=== PATIENT | female | born 1990 | race Caucasian/White ===

== ENCOUNTER 2019-01-16 04:16 | Emergency (ER) | payer OTHER ==
[~2019-01-16] VITALS: Ht 170.2 cm; Wt 127.1 kg
[~2019-01-16 04:16] MED LIST: ALPR0.25 PO; IBUP-1542 PO
[2019-01-16 04:23] VITALS: Ht 170.2 cm; Wt 127.1 kg
[2019-01-16] MEDS ORDERED: KETOROLAC 30 MG INJ IM STA (04:46)
[2019-01-16] MEDS ORDERED: LIDOCAINE/MYLANTA 40 ML BTL PO ONE (05:00)
[2019-01-16] MEDS ORDERED: ONDANSETRON (ODT) 4 MG TAB ODT STA (05:09)
[2019-01-16] MEDS ORDERED: ACET-141 PO (05:56)
[2019-01-16] MEDS ORDERED: UDMYL PO (05:56)
[2019-01-16] MEDS ORDERED: ONDA4TAB14 PO (05:56)
--- NOTE | 2019-01-16 05:58 | ERD ---
ER Documentation Chief Complaint Chief Complaint epigastric pain/vomiting since 2199 ROS All systems reviewed and are negative except as per history of present illness. Medications Home Meds Active Scripts Ondansetron (Ondansetron Odt) 4 Mg Tab.rapdis, 4 MG PO Q6H PRN for NAUSEA AND/OR VOMITING, #15 TAB Prov:BRENNAN RODRIGUEZ DO 01/16/19 Acetaminophen* (Acetaminophen*) 500 MG Extra Strength Tablet, 500 MG PO Q4H PRN for PAIN AND OR ELEVATED TEMP, #30 TAB Prov:BRENNAN RODRIGUEZ DO 01/16/19 Magaldrate/Simethicone* (Mag-Al Plus Suspension*) 30 Ml Oral.susp, 30 ML PO Q6H PRN for GASTROINTESTINAL UPSET for 7 Days, #1 BOTTLE Prov:BRENNAN RODRIGUEZ DO 01/16/19 Ibuprofen* (Ibuprofen*) 600 Mg Tablet, 600 MG PO Q6H PRN for PAIN AND OR ELEVATED TEMP, #30 TAB Prov:SHEBA SARAVIA NP 12/10/15 Alprazolam* (Xanax*) 0.25 Mg Tablet, 0.25 MG PO Q8H PRN for ANXIETY, #10 TAB Prov:SHEBA SARAVIA [employer] 12/10/15 Reported Medications [none] Unknown Strength No Conflict Check 12/10/15 Allergies Allergies: Coded Allergies: No Known Allergy (Unverified , 12/10/15) PMhx/Soc Medical and Surgical Hx: pt denies Medical Hx, pt denies Surgical Hx History of Surgery: No Anesthesia Reaction: No Hx Neurological Disorder: No Hx Respiratory Disorders: No Hx Cardiac Disorders: No Hx Psychiatric Problems: No Hx Miscellaneous Medical Probl: No Hx Alcohol Use: No Hx Substance Use: No Hx Tobacco Use: No Smoking Status: Never smoker Physical Exam Vitals Vital Signs Date Temp Pulse Resp B/P (MAP) Pulse Ox O2 O2 Flow FiO2 Time Delivery Rate 01/16/19 97.8 79 18 165/95 100 04:23 (118) Physical Exam Const: No acute distress Head: Atraumatic Eyes: Normal Conjunctiva ENT: Normal External Ears, Nose and Mouth. Neck: Full range of motion. No meningismus. Resp: Clear to auscultation bilaterally Cardio: Regular rate and rhythm, no murmurs Abd: Soft, non tender, non distended. Normal bowel sounds Skin: No petechiae or rashes Back: No midline or flank tenderness Ext: No cyanosis, or edema Neur: Awake and alert Psych: Normal Mood and Affect Result Diagram: 01/16/19 0500 01/16/19 0500 Results 24 hrs Laboratory Tests Test 01/16/19 04:55 01/16/19 05:00 POC Beta HCG, Qualitative NEGATIVE White Blood Count 11.6 10^3/ul Red Blood Count 4.21 10^6/ul Hemoglobin 10.6 g/dl Hematocrit 33.7 % Mean Corpuscular Volume 80.0 fl Mean Corpuscular Hemoglobin 25.2 pg Mean Corpuscular Hemoglobin Concent 31.5 g/dl Red Cell Distribution Width 14.1 % Platelet Count 339 10^3/UL Mean Platelet Volume 10.1 fl Immature Granulocytes % 0.600 % Neutrophils % 72.7 % Lymphocytes % 19.8 % Monocytes % 5.7 % Eosinophils % 0.9 % Basophils % 0.3 % Nucleated Red Blood Cells % 0.0 /100WBC Immature Granulocytes # 0.070 10^3/ul Neutrophils # 8.5 10^3/ul Lymphocytes # 2.3 10^3/ul Monocytes # 0.7 10^3/ul Eosinophils # 0.1 10^3/ul Basophils # 0.0 10^3/ul Nucleated Red Blood Cells # 0.0 10^3/ul Urine Color STRAW Urine Clarity CLEAR Urine pH 8.0 Urine Specific [place] 1.016 Urine Ketones NEGATIVE mg/dL Urine Nitrite NEGATIVE mg/dL Urine Bilirubin NEGATIVE mg/dL Urine Urobilinogen NEGATIVE mg/dL Urine Leukocyte Esterase NEGATIVE Denisa/ul Urine Microscopic RBC 0 /HPF Urine Microscopic WBC 1 /HPF Urine Hemoglobin 2+ mg/dL Urine Glucose NEGATIVE mg/dL Urine Total Protein NEGATIVE mg/dl Sodium Level 138 mmol/L Potassium Level 3.9 mmol/L Chloride Level 102 mmol/L Carbon Dioxide Level 27 mmol/L Anion Gap 9 Blood Urea Nitrogen 12 mg/dl Creatinine 0.50 mg/dl Est Glomerular Filtrat Rate mL/min > 60 mL/min Glucose Level 127 mg/dl Calcium Level 9.6 mg/dl Total Bilirubin 0.3 mg/dl Direct Bilirubin 0.00 mg/dl Indirect Bilirubin 0.3 mg/dl Aspartate Amino Transf (AST/SGOT) 17 IU/L Alanine Aminotransferase (ALT/SGPT) 18 IU/L Alkaline Phosphatase 79 IU/L Total Protein 7.7 g/dl Albumin 4.0 g/dl Globulin 3.70 g/dl Albumin/Globulin Ratio 1.08 Lipase 79 U/L Current Medications Medications Dose Sig/Placido Start Time Status Last (Trade) Ordered Route PRN Stop Time Admin Dose Reason Admin 40 ml ONCE ONCE 01/16/19 DC 01/16/19 Miscellaneous PO 05:00 05:02 Medication 01/16/19 05:01 (Gi Cocktail (2)) Ketorolac 30 mg ONCE STAT 01/16/19 DC 01/16/19 Tromethamine IM 04:46 05:03 (Toradol) 01/16/19 04:48 Ondansetron 4 mg ONCE STAT 01/16/19 DC 01/16/19 HCl (Zofran ODT 05:09 05:16 Odt) 01/16/19 05:14 Departure Diagnosis: Primary Impression: Abdominal pain Abdominal location: epigastric Qualified Codes: R10.13 - Epigastric pain Condition: Fair Patient Instructions: Abdominal Pain, Gastritis (Adult) Referrals: [facility] YOU HAVE RECEIVED A MEDICAL SCREENING EXAM AND THE RESULTS INDICATE THAT YOU DO NOT HAVE A CONDITION THAT REQUIRES URGENT TREATMENT IN THE EMERGENCY DEPARTMENT. FURTHER EVALUATION AND TREATMENT OF YOUR CONDITION CAN WAIT UNTIL YOU ARE SEEN IN YOUR DOCTORS OFFICE WITHIN THE NEXT 1-2 DAYS. IT IS YOUR RESPONSIBILITY TO MAKE AN APPOINTMENT FOR FOLOW-UP CARE. IF YOU HAVE A PRIMARY DOCTOR --you should call your primary doctor and schedule an appointment IF YOU DO NOT HAVE A PRIMARY DOCTOR YOU CAN CALL OUR PHYSICIAN REFERRAL HOTLINE AT IF YOU CAN NOT AFFORD TO SEE A PHYSICIAN YOU CAN CHOSE FROM THE FOLLOWING [facility] [address] [facility] [address] [facility] [facility] [facility] [address] [facility] [address] [facility] [address] [facility]. [facility]. [address] Additional Instructions: Call your primary care doctor TOMORROW for an appointment during the next 1-2 days.See the doctor sooner or return here if your condition worsens before your appointment time. BRENNAN RODRIGUEZ DO Jan 16, 2019 05:58
[2019-01-16 06:00] VITALS: BP 142/89; PULSE 75; RESP 18
== END 2019-01-16 06:05 | disposition home or self-care (01) ==
LOC: FTE 04:16
DX: R10.13 Epigastric pain (principal); R11.10 Vomiting, unspecified
CPT/HCPCS: 36415; 80053; 81001; 81025; 83690; 85025; 96372; J1885; Z7502; Z7610